=== PATIENT | male | born 1960 | race Caucasian/White ===

== ENCOUNTER 2023-02-27 11:43 | Day surgery (SDC) | payer BC ==
[~2023-02-27] VITALS: Ht 182.9 cm; Wt 82.9 kg
[2023-02-27] MEDS ORDERED: MONT10T (12:16)
[2023-02-27] MEDS ORDERED: POTA10T (12:16)
[2023-02-27] MEDS ORDERED: LEVFLO500 (12:16)
[2023-02-27] MEDS ORDERED: TELM80 (12:17)
[2023-02-27] MEDS ORDERED: Crestor20 MG (12:17)
[2023-02-27 15:06] VITALS: BP 117/81
== END 2023-02-27 14:59 | disposition home or self-care (01) ==
LOC: ORSCSDS 11:43
PROVIDERS: Internal Medicine Gastroenterology
PROC: 0DBN8ZX Excision of Sigmoid Colon, Via Natural or Artificial Opening Endoscopic, Diagnostic (ICD-10-PCS; principal; 2023-02-27 13:00)
DX: Z12.11 Encounter for screening for malignant neoplasm of colon (principal); D12.5 Benign neoplasm of sigmoid colon; K57.30 Diverticulosis of large intestine without perforation or abscess without bleeding; Z79.899 Other long term (current) drug therapy
CPT/HCPCS: 88305; J2704; J7120